=== PATIENT | female | born 2000 | race Two or more races ===

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

== ENCOUNTER 2022-01-28 01:42 | Emergency (ER) | payer MEDICAID ==
[~2022-01-28] VITALS: Ht 162.6 cm; Wt 68.1 kg
[2022-01-28 02:00] VITALS: BP 111/74
[2022-01-28 02:54] LABS: Urine Bacteria FEW /hpf (None Seen); Urine Blood Negative /uL (Negative); Urine Mucus FEW (None Seen); Urine Specific Gravity 1.019 (1.001-1.035); Urine WBC 4 /hpf (0 - 5)
[2022-01-28 04:11] LABS: Basophils # (auto) 0.1 10 ^3/uL (0-0.2); Basophils % (auto) 1.2 % (0.0-2.0); Eosinophils # (auto) 0 10 ^3/uL (0-0.8); Eosinophils % (auto) 0.1 % (0.0-7.0); Hematocrit 37.9 % (36.0-46.0); Hemoglobin 12.9 g/dL (12.2-16.2); Lymphocytes # (auto) 0.7 10 ^3/uL (0.4-5.4); Lymphocytes % (auto) 6.2 % (10.0-50.0); Mean Corpuscular Hemoglobin 28.8 pg (28.0-32.0); Mean Corpuscular Volume 84.7 fL (80.0-100.0); Monocytes # (auto) 0.5 10 ^3/uL (0-1.3); Monocytes % (auto) 4.3 % (0.0-12.0); Neutrophils % (auto) 88.2 % (37.0-80.0); Red Blood Cells 4.48 10^6/uL (4.0-5.20); Red Cell Distribution Width 14.8 % (11.8-14.3); White Blood Cell 11.3 10^3/uL (4.4-10.8)
[2022-01-28 04:27] LABS: Albumin 4.2 g/dL (3.4-5.0); Calcium 9.4 mg/dL (8.5-10.1)
[2022-01-28 04:30] LABS: Bilirubin, Total 0.6 mg/dL (0.2-1.0); Total Protein 8.9 g/dL (6.4-8.2)
[2022-01-28 04:41] LABS: Acetaminophen < 2.0 ug/mL (10-30); Salicylate < 1.7 mg/dL (2.8-20.0)
[2022-01-28 09:01] LABS: Amphetamine Screen, Urine NEGATIVE (NEGATIVE); Barbiturate Scree,Urine NEGATIVE (NEGATIVE); Benzodiazephine Screen, Urine NEGATIVE (NEGATIVE); Cannabinoid Screen, Urine POSITIVE (NEGATIVE); Cocaine Screen, Urine NEGATIVE (NEGATIVE); Opiate Scree,Urine NEGATIVE (NEGATIVE); Phencyclidine Screen, Urine NEGATIVE (NEGATIVE)
== END 2022-01-28 10:41 | disposition left against medical advice (07) ==
LOC: ER 01:42
DX: F32.9 Major depressive disorder, single episode, unspecified (principal); R07.89 Other chest pain; Z53.21 Procedure and treatment not carried out due to patient leaving prior to being seen by health care provider
CPT/HCPCS: 36415; 80053; 80307; 80329; 81001; 81025; 85025; 93005

== ENCOUNTER 2022-05-08 17:11 | Emergency (ER) | payer MEDICAID ==
[~2022-05-08] VITALS: Ht 160 cm; Wt 73.0 kg
[2022-05-08] MEDS ORDERED: LIDOCAINE 1% HCL (LOCAL ANESTH.) INJ 20ML MDV ID ONE (23:00)
[2022-05-08 23:25] VITALS: BP 132/89
[2022-05-08] MEDS ORDERED: ACET-1158 PO (23:26)
[2022-05-08] MEDS ORDERED: CEPH-510 PO (23:26)
== END 2022-05-08 21:07 | disposition home or self-care (01) ==
LOC: ER 17:11
DX: S90.211A Contusion of right great toe with damage to nail, initial encounter (principal); Z86.2 Personal history of diseases of the blood and blood-forming organs and certain disorders involving the immune mechanism; Z79.899 Other long term (current) drug therapy; W50.0XXA Accidental hit or strike by another person, initial encounter; Y93.89 Activity, other specified; Y92.89 Other specified places as the place of occurrence of the external cause; Y99.8 Other external cause status
CPT/HCPCS: 11730; 73660; 99284; J2001

== ENCOUNTER 2025-01-25 21:52 | Emergency (ER) | payer MEDICAID ==
[~2025-01-25] VITALS: Ht 160 cm; Wt 75.0 kg
[~2025-01-25 21:52] MED LIST: ACET500T58 PO; CEPH-510 PO
--- NOTE | 2025-01-25 22:34 | ED.PDOC ---
GI ASSESSMENT HPI Comments This patient is a pleasant but obese 24-year-old female came to ER due to abdominal pain. Patient has a history of lupus. States for the past 5 days, she has been experiencing periumbilical abdominal pain, intermittent, 7/10 intensity, radiating to her back, associated bouts of nausea and vomiting. Vital signs were stable on arrival. Chief Complaint: Abdominal Pain Time Seen by MD: 22:33 Reviewed Notes: Nurses Notes Allergies: Coded Allergies: Prednisone (Verified Allergy, Unknown, 01/25/25) Home Meds Active Scripts Acetaminophen (Acetaminophen) 500 Mg Tab, 500 MG PO QIDP, #30 TAB 0 Refills Prov:ANSELMO JUAREZ 05/08/22 Cephalexin ( Keflex 500) 500 Mg Cap, 1 CAP PO BID for 7 Days, #14 CAP 0 Refills Prov:ANSELMO JUAREZ 05/08/22 Information Source: Patient Mode of Arrival: Ambulatory Timing: Days Duration: Intermittent Prehospital treatment: None Quality: Cramping, Sharp Vomitus: None Severity: Moderate Recent: None Recent Hx of: None Pain Location: Diffuse, Epigastric, Periumbilical Associated sign and symptoms: Nausea, Vomiting, Abdominal Pain Past Medical History PAST MEDICAL HISTORY: Anemia, Anxiety Past Medical History (Other): Lupus Surgical History: Denies all surgeries [employer] 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 Family History Family History: Reviewed,noncontributory to illness Social History Smoker: Non-Smoker Alcohol: Occasionally Drugs: Denies Drug Use Lives In: Home Constitutional: denies: chills, diaphoresis, fatigue, fever, malaise, sweats, weakness, others EENTM: denies: blurred vision, double vision, ear bleeding, ear discharge, ear drainage, ear pain, ear ringing, eye pain, eye redness, hearing loss, mouth pain, mouth swelling, nasal discharge, nose bleeding, nose congestion, nose pain, photophobia, tearing, throat pain, throat swelling, voice changes, others Respiratory: denies: cough, hemoptysis, orthopnea, SOB at rest, shortness of breath, SOB with excertion, stridor, wheezing, others Cardiovascular: denies: chest pain, dizzy spells, diaphoresis, Dyspnea on exertion, edema, irregular heart beat, left arm pain, lightheadedness, palpitations, PND, syncope, others Gastrointestinal: reports: abdominal pain, nausea, vomiting; denies: abdomen distended, blood streaked bowels, constipated, diarrhea, dysphagia, difficulty swallowing, hematemesis, melena, poor appetite, poor fluid intake, rectal bleeding, rectal pain, others Genitourinary: denies: abnormal vagina bleeding, burning, dyspareunia, dysuria, flank pain, frequency, hematuria, incontinence, pain, , vagina discharge, urgency, others Neurological: denies: dizziness, fainting, headache, left sided numbness, left sided weakness, numbness, paresthesia, pre-existing deficit, right sided numbness, right sided weakness, seizure, speech problems, tingling, tremors, weakness, others Musculoskeletal: reports: back pain; denies: gout, joint pain, joint swelling, muscle pain, muscle stiffness, neck pain, others Integumetry: denies: bruises, change in color, change in hair/nails, dryness, laceration, lesions, lumps, rash, wounds, others Allergic/Immunocompromised: denies: Difficulty Healing, Frequent Infections, Hives, Itching, others Hematologic/Lymphatic: denies: anemia, blood clots, easy bleeding, easy bruising, swollen glands, others Endocrine: denies: excessive hunger, excessive sweating, excessive thirst, excessive urination, flushing, intolerance to cold, intolerance to heat, unexplained weight gain, unexplained weight loss, others Psychiatric: denies: anxiety, bipolar disorder, depression, hopeless, panic disorder, schizophrenia, sleepless, suicidal, others Physical Exam General Appearance: Moderate Distress ([id number] distress due to belly pain concerns.), Obese HEENT: Normal ENT Inspection, Pharynx Normal, TMs Normal Neck: Full Range of Motion, Non-Tender, Normal, Normal Inspection Respiratory: Chest Non-Tender, Lungs Clear, No Accessory Muscle Use, No Respiratory Distress, Normal Breath Sounds Cardiovascular: No Edema, No JVD, No Murmur, No Gallop, Normal Peripheral Pulses, Regular Rate/Rhythm Breast Exam: Deferred Gastrointestinal: Other (Patient complains of central abdominal tenderness to palpation superior to the umbilicus and towards the epigastric region. Difficult to assess due to body habitus. No signs of trauma.) Genitalia: Deferred Pelvic: Deferred Rectal: Deferred Extremities: No calf tenderness, Normal capillary refill, Normal inspection, Normal range of motion, Non-tender, No pedal edema Musculoskeletal : Apperance: Normal Neurologic: Alert, No Motor Deficits, Normal Affect, Normal Mood, No Sensory Deficits Cerebellar Function: NOT DONE Reflexes: NOT DONE Skin: Dry, Normal Color, Warm Lymphatic: No Adenopathy Was a procedure done? Was a procedure done?: No GI differential Dx Differential Diagnosis: Cholecystitis, Constipation, Diverticular disease, Gastritis/PUD, Gastroenteritis, Hernia, Pancreatitis, UTI X-Ray, Labs, Meds, VS Vital Signs Date Time Temp Pulse Resp B/P (MAP) Pulse Ox O2 Delivery O2 Flow Rate FiO2 01/25/25 23:46 98.6 69 19 102/65 (77) 97 98.6 01/25/25 23:46 69 19 97 Room Air 01/25/25 21:53 98.2 66 18 104/74 98 98.2 Lab Test 01/25/25 22:46 01/25/25 22:27 Range/Units White Blood Count 4.4 4.4-10.8 10^3/uL Red Blood Count 4.08 4.0-5.20 10^6/uL Hemoglobin 12.6 12.2-16.2 g/dL Hematocrit 36.3 36.0-46.0 % Mean Corpuscular Volume 88.9 80.0-100.0 fL Mean Corpuscular Hemoglobin 30.8 28.0-32.0 pg Mean Corpuscular Hemoglobin Concent 34.7 32.0-36.0 g/dL Red Cell Distribution Width 13.7 11.8-14.3 % Platelet Count 305 140-450 10^3/uL Mean Platelet Volume 8.5 6.9-10.8 fL Neutrophils (%) (Auto) 69.8 37.0-80.0 % Lymphocytes (%) (Auto) 20.5 10.0-50.0 % Monocytes (%) (Auto) 8.2 0.0-12.0 % Eosinophils (%) (Auto) 1.0 0.0-7.0 % Basophils (%) (Auto) 0.5 0.0-2.0 % Neutrophils # (Auto) 3.1 1.6-8.6 10 ^3/uL Lymphocytes # (Auto) 0.9 0.4-5.4 10 ^3/uL Monocytes # (Auto) 0.4 0-1.3 10 ^3/uL Eosinophils # (Auto) 0 0-0.8 10 ^3/uL Basophils # (Auto) 0 0-0.2 10 ^3/uL Nucleated Red Blood Cells 0.0 % Sodium Level 141 136-145 mmol/L Potassium Level 3.7 3.5-5.1 mmol/L Chloride Level 106 98-107 mmol/L Carbon Dioxide Level 26 20-31 mmol/L Anion Gap 9 5-15 Blood Urea Nitrogen 16 9-23 mg/dL Creatinine 0.88 0.550-1.02 mg/dL Glomerular Filtration Rate Calc 94 >90 mL/min BUN/Creatinine Ratio 18.2 10.0-20.0 Serum Glucose 84 74-106 mg/dL Calcium Level 9.1 8.7-10.4 mg/dL Lipase 48 12-53 U/L Urine Color Yellow Yellow Urine Clarity Turbid H Clear Urine pH 6.0 5.0-9.0 Urine Specific Drake 1.032 1.001-1.035 Urine Protein 1+ H Negative Urine Ketones Negative Negative Urine Blood 2+ H Negative /uL Urine Nitrite Negative Negative Urine Bilirubin Negative Negative Urine Urobilinogen Normal Negative mg/dL Urine Leukocyte Esterase 1+ Negative /uL Urine RBC 23 0 - 4 /hpf Urine WBC Clumps Present None Seen /hpf Urine Microscopic WBC 91 H 0-5 /HPF Urine Squamous Epithelial Cells Many <5 /hpf Urine Transitional Epithelial Cells Few <2 /hpf Urine Renal Epithelial Cells Few None Seen /hpf Urine Bacteria Few H None Seen /hpf Urine Mucus Few None Seen Urine Glucose Normal Normal mg/dL Urine Test Negative Negative Current Medications Medications (Trade) Dose Ordered Sig/Christine Route Start Time Stop Time Status Last Admin Ondansetron HCl (Zofran Po) 4 mg ONCE ONCE PO 01/25/25 22:30 01/25/25 22:31 DC 01/25/25 23:39 Dicyclomine HCl (Bentyl Injection) 20 mg ONCE ONCE IM 01/25/25 22:30 01/25/25 22:31 DC 01/25/25 23:39 X-Ray, Labs, Meds, VS Comment Imaging studies were pending at time of this note. Serum laboratories were unremarkable for any systemic concerns, but urinalysis confirmed a large urinary tract infection. Patient was given the 1st dose of antibiotics prior to discharge. Patient care will be transferred to enrique Moffett for review of imaging studies once returned. Once evaluated, he will respond accordingly. Time of 1ST Reevaluation: :17 Reevaluation 1ST: Improved Consultation: PCP Patient Education/Counseling: Diagnosis, Treatment Family Education/Counseling: Diagnosis, Treatment, No Family Present SEPSIS Sepsis Screen Date sepsis recognized/suspect: Jan 25, 2025 Time Sepsis recognized/suspect: 2152 Recent Procedure: No On Antibiotic Therapy: No Respiratory Rate >20: No Heart Rate >90: No Temp<36 C (96.8 F) or >38.3 C: No SBP <90 or MAP <65 mmHG: No New Acute Mental Status Change: No Is the patient on CPAP, BIPAP,: No Physician Orders Kub Abdomen Single View (01/25/25 22:27) Sulfamethoxazole W/Trimeth Tab (Bactrim (01/26/25 02:30) Vital Signs Date Time Temp Pulse Resp B/P (MAP) Pulse Ox O2 Delivery O2 Flow Rate FiO2 01/25/25 23:46 98.6 69 19 102/65 (77) 97 98.6 01/25/25 23:46 69 19 97 Room Air 01/25/25 21:53 98.2 66 18 104/74 98 98.2 Laboratory Tests Test 01/25/25 22:46 White Blood Count 4.4 10^3/uL (4.4-10.8) Medications Medications Dose Ordered Sig/Christine Route Start Time Stop Time Status Last Admin Dose Admin Dicyclomine HCl 20 mg ONCE ONCE IM 01/25/25 22:30 01/25/25 22:31 DC 01/25/25 23:39 Ondansetron HCl 4 mg ONCE ONCE PO 01/25/25 22:30 01/25/25 22:31 DC 01/25/25 23:39 Departure 1 Departure Time of Disposition: 02:18 Impression: Primary Impression: Urinary tract infection Disposition: HOME / SELF CARE / HOMELESS Condition: Stable Additional Instructions: Advised patient utilize antibiotics as directed until completion as well as additional medication as needed. Patient should practice good hydration and healthy nutrition throughout. Patient should follow up with the primary care provider as she has had recurrent urinary tract infections. e-Prescriptions Ondansetron Odt 4MG Tab (ZOFRAN PO) 4 Mg Tb 4 MG PO Q6HP PRN, #15 TAB ODT TAB-DISSOLVE IN MOUTH, THEN SWALLOW Prov: MATEO MENA PAC 01/26/25 Acetaminophen (Acetaminophen) 500 Mg Tab 500 MG PO Q4HP PRN, #20 TAB Prov: MATEO MENA PAC 01/26/25 Sulfamethoxazole W/Trimethopri (Bactrim Ds Tablet) 1 Tab Tb 1 TAB PO BID for 7 Days, #14 TAB Prov: MATEO MENA PAC 01/26/25 Discharged With: Self, Friend Critical Care Note Critical Care Time?: No Stability Stability form required: No Heart Score Heart Score: Heart Score Response (Comments) Value History N/A 0 EKG N/A 0 Age N/A 0 Risk Factors N/A 0 Troponin N/A 0 Total 0 I personally scribed for MATEO MENA PAC ([email or web address]) on 01/25/25 at 22:34. Electronically submitted by Cirilo Mooney ([email or web address]). MATEO MENA PAC Jan 25, 2025 22:34
[2025-01-25 23:11] LABS: Hematocrit 36.3 % (36.0-46.0); Hemoglobin 12.6 g/dL (12.2-16.2); Mean Corpuscular Hemoglobin 30.8 pg (28.0-32.0); Mean Corpuscular Volume 88.9 fL (80.0-100.0); Nucleated Red Blood Cells % 0.0 %
[2025-01-25 23:20] LABS: Chloride 106 mmol/L (98-107); Potassium 3.7 mmol/L (3.5-5.1); Sodium 141 mmol/L (136-145)
[2025-01-25 23:21] LABS: Anion Gap 9 (5-15); Carbon Dioxide 26 mmol/L (20-31)
[2025-01-25 23:22] LABS: Calcium 9.1 mg/dL (8.7-10.4)
[2025-01-25 23:26] LABS: Glucose 84 mg/dL (74-106)
[2025-01-25 23:27] LABS: BUN/Creatinine Ratio 18.2 (10.0-20.0); Blood Urea Nitrogen 16 mg/dL (9-23); Lipase 48 U/L (12-53)
[2025-01-25] MEDS: ONDANSETRON ODT 4 MG TAB PO ONE (23:39)
[2025-01-25] MEDS: DICYCLOMINE HCL (10MG/ML) 2 ML AMPULE IM ONE (23:39)
[2025-01-26 01:23] LABS: Urine Protein, UAD 1+ (Negative); Urine WBC Clumps PRESENT /hpf (None Seen)
[2025-01-26] MEDS ORDERED: ZOFR4T PO (02:19)
[2025-01-26] MEDS ORDERED: BACDST PO (02:19)
[2025-01-26] MEDS ORDERED: ACET500T58 PO (02:19)
[2025-01-26 03:05] VITALS: TEMP 98.3
[2025-01-26] MEDS: SULFAMETHOX W/TRIMETH(800/160MG) DS TAB PO ONE (03:05)
--- NOTE | 2025-01-26 04:51 | DVH ---
Date: 01/26/2025 01:26 AM Examination: XY KUB ABDOMEN SINGLE VIEW History: Constipation Comparison: None TECHNIQUE: Frontal views of the abdomen was obtained. FINDINGS: Moderate stool burden which may reflect constipation. No bowel obstruction or ileus. The lung bases are unremarkable. No acute osseous abnormality identified. IMPRESSION: 1. Moderate stool burden which may reflect constipation. No bowel obstruction or ileus.
[2025-01-26 05:00] VITALS: BP 100/71; PULSE 60; RESP 14; O2SAT 100
== END 2025-01-26 05:00 | disposition home or self-care (01) ==
LOC: ER 21:52
DX: N39.0 Urinary tract infection, site not specified (principal); Z88.8 Allergy status to other drugs, medicaments and biological substances
CPT/HCPCS: 36415; 74018; 80048; 81001; 81025; 83690; 85025; 96372; 99284; J0500; Q0162